=== PATIENT | female | born 1975 | race Caucasian/White ===

== ENCOUNTER 2017-06-24 12:00 | Observation (INO) | END 2017-06-26 14:40 | disposition home or self-care (01) ==

== ENCOUNTER 2018-04-24 23:28 | Emergency (ER) | payer SELFPAY ==
[~2018-04-24] VITALS: Wt 84.1 kg
[~2018-04-24 23:28] MED LIST: CARAS PO; CIPR-193 PO; OMEP20CA16 PO
[2018-04-25] MEDS ORDERED: KETOROLAC 60 MG INJ IM STA (00:49)
--- NOTE | 2018-04-25 00:52 | ERD ---
ER Documentation Chief Complaint Chief Complaint COUGH, FEVER, SHER X'S 2 DAYS HPI 42-year-old female presents with history of fever, cough, body aches, headache for the past 3 days. States that she took codeine for the headache that is still there. Denies any nausea, vomiting, diarrhea. Denies wheezing, hemoptysis, respiratory distress, chest pain, worse headache of life, focal deficits, numbness, tingling. Denies past medical history. Denies allergies. Denies medications. Denies surgeries. Denies alcohol, tobacco, drug use. Up to date on vaccines. ROS All systems reviewed and are negative except as per history of present illness. Medications Home Meds Active Scripts Ciprofloxacin Hcl* (Ciprofloxacin Hcl*) 250 Mg Tablet, 250 MG PO BID for 1 Day, #2 TAB Prov:FREDERIC DAS 06/26/17 Sucralfate* (Carafate*) 1 Gm/10 Ml Susp, 1 GM PO QID for 10 Days, #400 Prov:FREDERIC DAS 06/26/17 Omeprazole* (Omeprazole*) 20 Mg Capsule.dr, 20 MG PO DAILY, #30 CAP 1 Refill Prov:FREDERIC DAS 06/26/17 Allergies Allergies: Coded Allergies: No Known Allergy (Unverified , 06/24/17) PMhx/Soc History of Surgery: Yes (H/O CHOLECYSTECTOMY X20YRS AGO) Anesthesia Reaction: No Hx Neurological Disorder: No Hx Respiratory Disorders: No Hx Cardiac Disorders: No Hx Psychiatric Problems: Yes (H/O ANXIETY) Hx Miscellaneous Medical Probl: No Hx Alcohol Use: No Hx Substance Use: No Hx Tobacco Use: No FmHx Family History: No diabetes, No coronary disease, No other Physical Exam Vitals Vital Signs Date Temp Pulse Resp B/P (MAP) Pulse Ox O2 O2 Flow FiO2 Time Delivery Rate 04/24/18 99.1 78 18 132/82 98 23:33 (99) Physical Exam Const: No acute distress Head: Atraumatic Eyes: Normal Conjunctiva ENT: Normal External Ears, Nose and Mouth. Neck: Full range of motion. No meningismus. Resp: Clear to auscultation bilaterally Cardio: Regular rate and rhythm, no murmurs Abd: Soft, non tender, non distended. Normal bowel sounds Skin: No petechiae or rashes Back: No midline or flank tenderness Ext: No cyanosis, or edema Neur: Awake and alert Psych: Normal Mood and Affect Neuro: M/S: Alert and oriented Face: EOMI, face and pharynx with normal sensation and function Motor: Normal strength throughout Sensation: Normal sensation throughout Speech: Normal Cerebel: Normal coordination Normal gait Normal finger to nose DTR: 2+ and symmetric upper/lower extremities Procedures/MDM 42-year-old female presents with history of fever, cough, body aches, headache for the past 3 days. States that she took codeine for the headache that is still there. Denies any nausea, vomiting, diarrhea. Denies wheezing, hemoptysis, respiratory distress, chest pain, worse headache of life, focal deficits, numbness, tingling. Denies past medical history. Denies allergies. Denies medications. Denies surgeries. Denies alcohol, tobacco, drug use. Up to date on vaccines. I have low suspicion for strep throat based on history and exam findings, as well as patient not meeting centor criteria for rapid strep testing. I have low suspicion for bacterial sinusitis, pneumonia, tuberculosis, meningitis, pneumothorax, PE, aspirated foreign body, respiratory distress, acute heart failure, meningitis or other life threatening etiology based on patient history and exam findings. Most likely etiology is viral URI and no further tests are necessary. Patient given rx for ibuprofen and promethazine. Patient advised to rest and stay well hydrated. Patient discharged with strict ER precautions. Patient advised to follow up with PMD. All questions answered at discharge. Departure Diagnosis: Primary Impression: URI (upper respiratory infection) URI type: unspecified viral URI Qualified Codes: J06.9 - Acute upper respiratory infection, unspecified Condition: Sabi SKYE SORIA Apr 25, 2018 00:52
[2018-04-25] MEDS ORDERED: D-ME473S2 PO (00:53)
[2018-04-25] MEDS ORDERED: IBUP-1542 PO (00:53)
[2018-04-25 01:53] VITALS: BP 101/73; PULSE 79; RESP 19
== END 2018-04-25 01:54 | disposition home or self-care (01) ==
LOC: FTE 23:28
DX: J06.9 Acute upper respiratory infection, unspecified (principal)
CPT/HCPCS: 81025; 96372; 99284; J1885